=== PATIENT | male | born 1965 | race Caucasian/White ===

== ENCOUNTER → 2016-12-28 | Outpatient (CLI) | payer BC ==
--- NOTE | 2016-12-28 10:56 | Diagnostic Imaging Report ---
3 views of the right ankle. INDICATION: Right ankle pain. FINDINGS: There is no fracture, dislocation or radiopaque foreign body. Ankle mortise is normal in configuration. There are mild anterior and posterior degenerative spurs however seen. IMPRESSION: Mild degenerative changes. Dictated by: Dictated on workstation # [id number]
--- NOTE | 2016-12-28 10:57 | Diagnostic Imaging Report ---
3 views of the right foot. INDICATION: Medial foot pain. FINDINGS: There is no fracture, dislocation or radiopaque foreign body. Joint alignment is satisfactory. Bipartite medial sesamoid bone and an os navicularis are noted. No significant degenerative changes are seen. IMPRESSION: No acute process. Dictated by: Dictated on workstation # [id number]
== END ==
LOC: RAD 10:18
PROVIDERS: ATTEND Family Medicine
DX: M25.571 Pain in right ankle and joints of right foot (principal); M79.671 Pain in right foot
CPT/HCPCS: 73610; 73630

== ENCOUNTER → 2019-01-19 | Outpatient (CLI) | payer BC ==
[~2019-01-19] MED LIST: ESCI10TA55
[2019-01-19 07:44] LABS: MEAN PLATELET VOLUME 10.2 FL (7.4-10.4); RED CELL DISTRIBUTION WIDTH 12.9 % (10.0-14.5); WHITE BLOOD COUNT 7.8 10^3/uL (4.3-11.0)
[2019-01-19 08:03] LABS: ALANINE AMINOTRANSFERASE 20 U/L (0-55); ALBUMIN 4.8 GM/DL (3.2-4.5); ALKALINE PHOSPHATASE 67 U/L (40-136); BUN/CREATININE RATIO 13; CALCIUM 9.9 MG/DL (8.5-10.1); CARBON DIOXIDE 19 MMOL/L (21-32); CHLORIDE 107 MMOL/L (98-107); CHOLESTEROL 277 MG/DL (< 200); CREATININE SERUM 1.25 MG/DL (0.60-1.30); GFR ESTIMATED 60; GLUCOSE 109 MG/DL (70-105); HDL CHOLESTEROL 42 MG/DL (40-60); SODIUM 140 MMOL/L (135-145); TOTAL PROTEIN 7.9 GM/DL (6.4-8.2); TRIGLYCERIDES 109 MG/DL (<150); VLDL CHOLESTEROL 22 MG/DL (5-40)
== END ==
LOC: LAB 07:28
PROVIDERS: ATTEND Family Medicine
DX: E78.2 Mixed hyperlipidemia (principal)
CPT/HCPCS: 36415; 80053; 80061; 84153; 85027; 86618; 86666; 86668; 86757

== ENCOUNTER → 2019-01-19 | Outpatient (CLI) | payer BC | LOC: LAB 13:42 | PROVIDERS: ATTEND Family Medicine | DX: R53.81 Other malaise (principal); R53.83 Other fatigue ==

== ENCOUNTER 2019-01-21 23:57 | Emergency (ER) | payer BC ==
[~2019-01-21] VITALS: Ht 180.3 cm; Wt 97.5 kg
[2019-01-22] MEDS ORDERED: ESCI10TA55 (00:03)
[2019-01-22 00:10] VITALS: BP_SYST 131; BP_SYST 134; BP_SYST 138; BP_DIAS 64; BP_DIAS 81; BP_DIAS 83
[2019-01-22] MEDS ORDERED: ASPIRIN 81 MG CHEW (CHILDREN'S ASA) PO ONE (00:15)
--- NOTE | 2019-01-22 00:15 | ED Syncope ---
General Chief Complaint: Dizziness/Syncope Stated Complaint: DIZZINESS Source of Information: Patient, EMS Exam Limitations: No Limitations History of Present Illness Date Seen by Provider: Jan 21, 2019 Time Seen by Provider: 23:56 Initial Comments Patient presents to the ER by EMS from home with chief complaint that he had about 15 minute episode of some feeling shaky, short of breath dizzy described as lightheadedness like he was going to pass out. He said he was sitting in his chair so he got up to try and walk around and it got worse. His family gave him 4 tablets of aspirin to chew and swallow. He has no personal history of coronary disease and does not smoke but does have a history of high cholesterol but does not take any medications for it. His father from a heart attack in his mid 50s. Patient denies diabetes hypothyroidism or history of dysrhythmia or coronary disease. He had a similar episode although nowhere near as severe before and in the past week and has felt weak so he went to his primary care doctor and they get him scheduled outpatient to do a cardiac stress test in about 2 weeks on 06 February. He's never had any chest pain or sweats, cough, nausea, chills, nausea. He said he did have a little pain radiating through between his shoulder blades briefly while the episode was happening. He has a history of anxiety and takes antianxiety medicine for it which she just recently started last week when he saw his primary care doctor. Allergies and Home Medications Allergies Coded Allergies: No Known Drug Allergies (Unverified , 01/22/19) Patient Home Medication List Home Medication List Reviewed: Yes Review of Systems Constitutional: No chills, No diaphoresis EENTM: No ear discharge, No hearing loss, No ear pain Respiratory: No cough; short of breath Cardiovascular: see HPI; No chest pain, No edema, No Hx of Intervention, No palpitations; syncope (near); No vascular heart diseas Gastrointestinal: No abdominal pain, No nausea, No vomiting Genitourinary: No discharge, No dysuria Musculoskeletal: see HPI; No back pain, No joint pain Past Sudbnel-Vgewqt-Bhqhiv Hx Patient Social History Alcohol Use: Denies Use Recreational Drug Use: No Smoking Status: Never a Smoker 2nd Hand Smoke Exposure: No Recent Hopitalizations: No Physical Abuse: No Sexual Abuse: No Mistreated: No Fear: No Immunizations Up To Date Tetanus Booster (TDap): Unknown Seasonal Allergies Seasonal Allergies: No Past Medical History Surgeries: No Respiratory: No Cardiac: Yes High Cholesterol Neurological: No Genitourinary: No Gastrointestinal: No Musculoskeletal: No Endocrine: No HEENT: No Cancer: No Psychosocial: Yes Anxiety, Depression Integumentary: No Blood Disorders: No Physical Exam Vital Signs Vital Signs - First Documented 01/21/19 23:58 Temp 96.1 Pulse 61 Resp 20 B/P (MAP) 156/104 (121) Pulse Ox 97 O2 Delivery Room Air Capillary Refill : Height, Weight, BMI Height: '" Weight: lbs. oz. kg; BMI Method: General Appearance: No Apparent Distress, WD/WN HEENT: PERRL/EOMI, TMs Normal, Normal ENT Inspection, Pharynx Normal, Moist Mucous Membranes Neck: Full Range of Motion, Normal Inspection, Non Tender, Supple Cardiovascular: Regular Rate, Rhythm, No Edema, No Gallop, No JVD, No Murmur, Normal Peripheral Pulses Respiratory: Chest Non Tender, Lungs Clear, Normal Breath Sounds, No Accessory Muscle Use, No Respiratory Distress Gastrointestinal: Normal Bowel Sounds, No Organomegaly, Non Tender, Soft Extremities: Normal Capillary Refill, Normal Inspection, Non Tender, No Calf Tenderness, No Pedal Edema Neurologic/Psychiatric: Alert, Oriented x3, No Motor/Sensory Deficits Cranial Nerves: Normal Hearing, Normal Speech Progress/Results/Core Measures Results/Orders Lab Results Laboratory Tests Test 01/22/19 00:00 Range/Units White Blood Count 10.5 4.3-11.0 10^3/uL Red Blood Count 5.16 4.35-5.85 10^6/uL Hemoglobin 15.0 13.3-17.7 G/DL Hematocrit 43 40-54 % Mean Corpuscular Volume 84 80-99 FL Mean Corpuscular Hemoglobin 29 25-34 PG Mean Corpuscular Hemoglobin Concent 35 32-36 G/DL Red Cell Distribution Width 13.0 10.0-14.5 % Platelet Count 273 130-400 10^3/uL Mean Platelet Volume 10.4 7.4-10.4 FL Neutrophils (%) (Auto) 47 42-75 % Lymphocytes (%) (Auto) 42 12-44 % Monocytes (%) (Auto) 10 0-12 % Eosinophils (%) (Auto) 1 0-10 % Basophils (%) (Auto) 0 0-10 % Neutrophils # (Auto) 4.9 1.8-7.8 X 10^3 Lymphocytes # (Auto) 4.4 H 1.0-4.0 X 10^3 Monocytes # (Auto) 1.0 0.0-1.0 X 10^3 Eosinophils # (Auto) 0.1 0.0-0.3 10^3/uL Basophils # (Auto) 0.0 0.0-0.1 10^3/uL Prothrombin Time 12.7 12.2-14.7 SEC INR Comment 0.9 0.8-1.4 Activated Partial Thromboplast Time 22 L 24-35 SEC Sodium Level 142 135-145 MMOL/L Potassium Level 3.3 L 3.6-5.0 MMOL/L Chloride Level 106 98-107 MMOL/L Carbon Dioxide Level 19 L 21-32 MMOL/L Anion Gap 17 H 5-14 MMOL/L Blood Urea Nitrogen 17 7-18 MG/DL Creatinine 1.38 H 0.60-1.30 MG/DL Estimat Glomerular Filtration Rate 53 BUN/Creatinine Ratio 12 Glucose Level 106 H 70-105 MG/DL Calcium Level 9.9 8.5-10.1 MG/DL Corrected Calcium 8.5-10.1 MG/DL Magnesium Level 2.3 1.8-2.4 MG/DL Total Bilirubin 0.6 0.1-1.0 MG/DL Aspartate Amino Transf (AST/SGOT) 16 5-34 U/L Alanine Aminotransferase (ALT/SGPT) 17 0-55 U/L Alkaline Phosphatase 68 40-136 U/L Myoglobin 17.1 10.0-92.0 NG/ML Troponin I < 0.028 <0.028 NG/ML B-Type Natriuretic Peptide 143.3 H <100.0 PG/ML Total Protein 7.5 6.4-8.2 GM/DL Albumin 4.6 H 3.2-4.5 GM/DL My Orders Orders - CINTHYA ZUNIGA Cbc With Automated Diff (01/22/19 00:10) Magnesium (01/22/19 00:10) Chest 1 View, Ap/Pa Only (01/22/19 00:10) Ekg Tracing (01/22/19 00:10) Cardiac Profile 1 (01/22/19 00:10) Comprehensive Metabolic Panel (01/22/19 00:10) Myoglobin Serum (01/22/19 00:10) Protime With Inr (01/22/19 00:10) Partial Thromboplastin Time (01/22/19 00:10) O2 (01/22/19 00:10) Monitor-Rhythm Ecg Trace Only (01/22/19 00:10) Ed Iv/Invasive Line Start (01/22/19 00:10) BNP (01/22/19 00:10) Aspirin Chewable Tablet (Baby Aspirin Ch (01/22/19 00:15) Orthostatic Vital Signs (Adult (01/22/19 00:10) Lactated Ringers (Lr 1000 Ml Iv Solution (01/22/19 00:48) Medications Given in ED Current Medications Medications Dose Ordered Sig/Ilya Route Start Time Stop Time Status Last Admin Dose Admin Aspirin 162 mg ONCE ONCE PO 01/22/19 00:15 01/22/19 00:16 DC 01/22/19 00:17 162 MG Vital Signs/I&O 01/21/19 01/22/19 01/22/19 23:58 00:00 00:10 Temp 96.1 Pulse 61 63 58 62 Resp 20 B/P (MAP) 156/104 (121) 138/64 (88) 131/83 (99) 134/81 (98) Pulse Ox 97 97 O2 Delivery Room Air Room Air Progress Progress Note #1: Time: 01:03 Progress Note Symptoms have resolved but he had a near syncopal event while sitting down. Could be vasovagal. We'll get labs, EKG, chest x-ray. Liter lactated Ringer's and orthostatic vital signs. Significant history of anxiety. Progress Note #2: Time: 01:38 Progress Note [place] syncope score negative two points. Very low risk 0.7% risk of 30-day serious adverse event. Did liter fluids but he still asymptomatic. Vital signs are aseptic. He can follow up outpatient with cardiology at his scheduled appointments. Initial ECG Impression Date: Jan 21, 2019 Initial ECG Impression Time: 23:58 Initial ECG Rate: 59 Initial ECG Rhythm: Normal Sinus Initial ECG Intervals: Normal Initial ECG Impression: Normal Initial ECG Comparisson: No Previous ECG Available Comment Normal sinus rhythm without ST changes. Diagnostic Imaging Diagonstic Imaging: Xray Plain Films/CT/US/NM/MRI: chest (1v) Comments No acute cardiopulmonary processes noted on the one view chest x-ray. Reviewed: Reviewed by Me Departure Impression Primary Impression: Near syncope Disposition: 01 HOME, SELF-CARE Condition: Stable Departure-Patient Inst. Decision time for Depature: 01:39 Referrals: CHIKIS PULIDO DO (PCP/Family) Primary Care Physician Patient Instructions: Near Fainting (DC) Add. Discharge Instructions: This is low likelihood that your near syncope episode is related to your heart however you need to complete an outpatient workup with the spout worker as already scheduled. If you again have chest pain, shortness of breath or worrisome symptoms please return to the ER for further evaluation. All discharge instructions reviewed with patient and/or family. Voiced understanding. CINTHYA ZUNIGA Jan 22, 2019 00:15
[2019-01-22 00:34] LABS: BASOPHILS % (AUTO) 0 % (0-10); EOSINOPHILS # (AUTO) 0.1 10^3/uL (0.0-0.3); EOSINOPHILS % (AUTO) 1 % (0-10); HEMATOCRIT 43 % (40-54); LYMPHOCYTES # (AUTO) 4.4 X 10^3 (1.0-4.0); LYMPHOCYTES % (AUTO) 42 % (12-44); MEAN CORPUSCULAR HEMOGLOBIN 29 PG (25-34); MEAN CORPUSCULAR HGB CONC 35 G/DL (32-36); MEAN CORPUSCULAR VOLUME 84 FL (80-99); MEAN PLATELET VOLUME 10.4 FL (7.4-10.4); MONOCYTES % (AUTO) 10 % (0-12); NEUTROPHILS # (AUTO) 4.9 X 10^3 (1.8-7.8); NEUTROPHILS % (AUTO) 47 % (42-75); PLATELET COUNT 273 10^3/uL (130-400); WHITE BLOOD COUNT 10.5 10^3/uL (4.3-11.0)
[2019-01-22 00:39] LABS: ALANINE AMINOTRANSFERASE 17 U/L (0-55); ALBUMIN 4.6 GM/DL (3.2-4.5); ALKALINE PHOSPHATASE 68 U/L (40-136); BILIRUBIN,TOTAL 0.6 MG/DL (0.1-1.0); BUN/CREATININE RATIO 12; CALCIUM 9.9 MG/DL (8.5-10.1); CARBON DIOXIDE 19 MMOL/L (21-32); CHLORIDE 106 MMOL/L (98-107); CREATININE SERUM 1.38 MG/DL (0.60-1.30); GFR ESTIMATED 53; GLUCOSE 106 MG/DL (70-105); MAGNESIUM 2.3 MG/DL (1.8-2.4); POTASSIUM 3.3 MMOL/L (3.6-5.0); SODIUM 142 MMOL/L (135-145); TOTAL PROTEIN 7.5 GM/DL (6.4-8.2)
[2019-01-22 00:41] LABS: INR 0.9 (0.8-1.4); PROTHROMBIN TIME PATIENT 12.7 SEC (12.2-14.7)
[2019-01-22] MEDS ORDERED: LACTATED RINGERS 1,000 ML IV STA (00:48)
[2019-01-22 01:48] VITALS: BP 132/84
--- NOTE | 2019-01-22 06:18 | Diagnostic Imaging Report ---
EXAMINATION: Portable erect AP chest at 1223 AM INDICATION: Dizziness There are no prior studies available for comparison. The heart size is within normal limits. The lungs are clear. There is no evidence for failure, pneumonia or for a pleural effusion. The mediastinum is not widened. The osseous structures are intact. IMPRESSION: There is no evidence for an acute cardiopulmonary abnormality. Dictated by: Dictated on workstation # [id number]
== END 2019-01-22 01:51 | disposition home or self-care (01) ==
LOC: EDUNIT# 23:57 → ER 01-22 01:51
DX: R55 Syncope and collapse (principal); E78.00 Pure hypercholesterolemia, unspecified; F41.9 Anxiety disorder, unspecified; F32.9 Major depressive disorder, single episode, unspecified
CPT/HCPCS: 36415; 71045; 80053; 83735; 83874; 83880; 84484; 85025; 85610; 85730; 93005; 93041